=== PATIENT | female | born 1990 | race Caucasian/White ===

== ENCOUNTER 2016-11-19 22:20 | Emergency (ER) | payer OTHER ==
[~2016-11-19] VITALS: Ht 157.5 cm; Wt 88.5 kg
[2016-11-19 22:27] VITALS: Ht 157.5 cm; Wt 88.5 kg
--- NOTE | 2016-11-19 22:59 | ERD ---
ER Documentation Chief Complaint Date/Time DATE: 11/19/16 TIME: 22:57 Chief Complaint shortness of breath 30 minutes ago, anxiety, left arm pain HPI 26-year-old female presents here in emergency department complains of palpitations on and off shortness of breath for 3 days, has had the symptoms for the last 5 years, but worse the last 3 days. Patient is complaining of left arm pain, abdominal pain, 6/10 scale, accompanied with numbness and tingling at times. Patient lives heavy object at work. Patient did not take any medications elevated symptoms. Patient denies any dyspnea on exertion or dyspnea on lying down. Patient denies any dizziness. Patient denies any cough. Patient denies any wheezing. ROS All systems reviewed and are negative except as per history of present illness. Medications Home Meds Reported Medications [none] Unknown Strength No Conflict Check 11/19/16 Allergies Allergies: Coded Allergies: No Known Allergy (Unverified , 11/19/16) PMhx/Soc Medical and Surgical Hx: pt denies Medical Hx, pt denies Surgical Hx FmHx Family History: diabetes Physical Exam Vitals Vital Signs Date Time Temp Pulse Resp B/P Pulse Ox O2 Delivery O2 Flow Rate FiO2 11/19/16 22:27 98.8 80 20 146/84 100 Physical Exam GENERAL: The patient is well developed and appropriate for usual state of health, in no apparent distress. CHEST: Clear to auscultation bilaterally. There are no rales, wheezes or rhonchi. HEART: Regular rate and rhythm. No murmurs, clicks, rubs or gallops. No S3 or S4. ABDOMEN: Soft, nontender and nondistended. Good bowel sounds. No rebound or guarding. No gross peritonitis. No gross organomegaly or masses. No Cee sign or McBurney point tenderness. BACK: No midline or flank tenderness. EXTREMITIES: Equal pulses bilaterally. There is no peripheral clubbing, cyanosis or edema. No focal swelling or erythema. Full range of motion. Grossly neurovascularly intact. NEURO: Alert and oriented. Cranial nerves 2-12 intact. Motor strength in all 4 extremities with 5/5 strength. Sensation grossly intact. Normal speech and gait. SKIN: There is no apparent rash or petechia. The skin is warm and dry. HEMATOLOGIC AND LYMPHATIC: There is no evidence of excessive bruising or lymphedema. No gross cervical, axillary, or inguinal lymphadenopathy. Results 24 hrs Laboratory Tests Test 11/19/16 23:14 Bedside Urine pH (LAB) 6.5 Bedside Urine Protein (LAB) Negative Bedside Urine Glucose (UA) Negative Bedside Urine Ketones (LAB) Negative Bedside Urine Blood 2+ Bedside Urine Nitrite (LAB) Negative Bedside Urine Leukocyte Esterase (L Negative EKG was done, read by me and is normal sinus rhythm with sinus arrhythmia at a rate of 86, normal axis, there is no ST changes or changes in the EKG that indicates any cardiac emergencies at this time. Patient's EKG was also reviewed by Dr. Terrell. Impression: no acute findings on EKG PROCEDURE: XR Chest. CLINICAL INDICATION: Left arm pain. TECHNIQUE: Portable AP upright view of the chest was obtained. COMPARISON: None. FINDINGS: The cardiomediastinal silhouette is within normal limits. The lungs are clear. The costophrenic angles are sharp. There is no evidence of pneumothorax. The osseous structures are intact with no evidence for acute abnormality. RPTAT:HJJR IMPRESSION: No evidence for acute intrathoracic pathology. Physician Jermaine Date Time Electronically viewed and signed by Physician Jermaine on 11/19/2016 23:54 JR/ CC: LILIYA HENDRICKS TECHNICIAN'S HELPER Procedures/MDM Medical Decision Making: Patient's symptoms nonspecific at this time, possible anxiety related, left arm pain nonspecific, possible musculoskeletal pain. There is low suspicion for cardiopulmonary emergencies at this time. Patient has low risk factors. EKG is normal, there is no changes in the EKG that indicates cardiac emergencies. Chest X-ray does not show cardiopulmonary emergencies at this time. There is low suspicion for aortic aneurysm, myocardial infarction, pneumothorax, pleural effusion, pulmonary embolism, or any other cardiopulmonary emergencies at this time. Prescription was given for ibuprofen for mild to moderate pain, tramadol for severe pain, advised to see primary care doctor in 1-2 days, possible Holter monitoring with software implementation specialist. Patient was advised to return to emergency department for any worsening symptoms Departure Diagnosis: Primary Impression: Palpitations Additional Impression: Arm pain, left Condition: Stable Patient Instructions: Palpitations Additional Instructions: Prescription was given for ibuprofen for mild to moderate pain, tramadol for severe pain, advised to see primary care doctor in 1-2 days, possible Holter monitoring with software implementation specialist. Patient was advised to return to emergency department for any worsening symptoms LILIYA HENDRICKS NP Nov 19, 2016 22:59
[2016-11-19 23:14] LABS: URINE BLOOD (Dip) POC 2+ (NEGATIVE)
--- NOTE | 2016-11-19 23:54 | RADRPT ---
PROCEDURE: XR Chest. CLINICAL INDICATION: Left arm pain. TECHNIQUE: Portable AP upright view of the chest was obtained. COMPARISON: None. FINDINGS: The cardiomediastinal silhouette is within normal limits. The lungs are clear. The costophrenic an gles are sharp. There is no evidence of pneumothorax. The osseous structures are intact with no ev idence for acute abnormality. RPTAT:HJJR IMPRESSION: No evidence for acute intrathoracic pathology. Physician Jermaine Date Time Electronically viewed and signed by Physician Jermaine on 11/19/2016 23:54 /
[2016-11-20] MEDS ORDERED: TRAM50TA2 PO (00:04)
[2016-11-20] MEDS ORDERED: IBUP-1542 PO (00:04)
== END 2016-11-20 00:14 | disposition home or self-care (01) ==
LOC: FTE 22:20
DX: R00.2 Palpitations (principal); M79.602 Pain in left arm
CPT/HCPCS: 71010; 81003; 93005; Z7502

== ENCOUNTER 2016-11-24 18:16 | Emergency (ER) | payer OTHER ==
[~2016-11-24] VITALS: Ht 154.9 cm; Wt 88.5 kg
[~2016-11-24 18:16] MED LIST: IBUP-1542 PO; TRAM50TA2 PO
[2016-11-24 18:18] VITALS: Ht 154.9 cm; Wt 88.5 kg
[2016-11-24] MEDS ORDERED: ONDANSETRON 4 MG INJ IV STA (18:46)
[2016-11-24] MEDS ORDERED: SOD CHLORIDE 0.9% 1,000 ML IV STA (18:46)
[2016-11-24] MEDS ORDERED: morphine 2 MG INJ IV STA (18:46)
--- NOTE | 2016-11-24 18:59 | ERD ---
ER Documentation Chief Complaint Date/Time DATE: 11/24/16 TIME: 18:53 Chief Complaint 7/10 right side flank pain x today denies pain with urination HPI This is a 26-year-old female presenting to the emergency department for intermittent right lower quadrant abdominal pain that started today. Patient states this morning she woke up with right-sided lower quadrant abdominal pain that radiates upwards to right upper quadrant. Patient rates pain 6/10 and describes pain as intermittent intermittent cramping. Denies any relieving or aggravating factors. Patient denies back or flank pain. No chest pain, shortness of breath, difficulty breathing or wheezing. Patient is talking in complete sentences. Denies dysuria or hematuria. No fevers or chills. No nausea or vomiting. Patient states she had loose bowel movements today. Patient's last menstrual period was 1 week ago. She states she is no longer menstruating. ROS All systems reviewed and are negative except as per history of present illness. Medications Home Meds Active Scripts Tramadol HCl (Tramadol HCl) 50 Mg Tablet, 50 MG PO Q6 Y for SEVERE PAIN LEVEL 7- 10, #20 TAB Prov:LILIYA HENDRICKS RELATIONSHIP MANAGEMENT LEAD 11/20/16 Ibuprofen* (Motrin*) 600 Mg Tab, 600 MG PO Q6H Y for PAIN AND OR ELEVATED TEMP, #30 TAB Prov:LILIYA HENDRICKS RELATIONSHIP MANAGEMENT LEAD 11/20/16 Reported Medications [none] Unknown Strength No Conflict Check 11/19/16 Allergies Allergies: Coded Allergies: No Known Allergy (Unverified , 11/24/16) PMhx/Soc Medical and Surgical Hx: pt denies Medical Hx, pt denies Surgical Hx Hx Alcohol Use: No Hx Substance Use: No Hx Tobacco Use: No Smoking Status: Never smoker Physical Exam Vitals Vital Signs Date Time Temp Pulse Resp B/P Pulse Ox O2 Delivery O2 Flow Rate FiO2 11/24/16 18:18 98.5 75 18 135/83 99 Physical Exam Const: alert, non-toxic appearing Head: Atraumatic Eyes: Normal Conjunctiva ENT: Normal External Ears, Nose and Mouth. Neck: Full range of motion..~ No meningismus. Resp: Clear to auscultation bilaterally. No wheezing, rhonchi or crackles. No stridor or labored breathing. No intercostal retractions. Cardio: Regular rate and rhythm, no murmurs Abd: Soft, non distended. Normal bowel sounds, right lower quadrant tenderness to palpation. Negative Cee sign. Skin: No petechiae or rashes Back: No midline or flank tenderness. No CVA tenderness. Ext: No cyanosis, or edema Neur: Awake and alert Psych: Normal Mood and Affect Result Diagram: 11/24/16189911/24/161899 Results 24 hrs Laboratory Tests Test 11/24/16 19:00 11/24/16 19:01 White Blood Count 6.610^3/ul Red Blood Count 4.7210^6/ul Hemoglobin 14.0g/dl Hematocrit 43.1% Mean Corpuscular Volume 91.3fl Mean Corpuscular Hemoglobin 29.7pg Mean Corpuscular Hemoglobin Concent 32.5g/dl Red Cell Distribution Width 11.9% Platelet Count 01537^3/UL Mean Platelet Volume 9.6fl Neutrophils % 51.7% Lymphocytes % 35.9% Monocytes % 9.0% Eosinophils % 2.6% Basophils % 0.6% Nucleated Red Blood Cells % 0.0/100WBC Neutrophils # 3.410^3/ul Lymphocytes # 2.410^3/ul Monocytes # 0.610^3/ul Eosinophils # 0.210^3/ul Basophils # 0.010^3/ul Nucleated Red Blood Cells # 0.010^3/ul Sodium Level 142mmol/L Potassium Level 4.0mmol/L Chloride Level 102mmol/L Carbon Dioxide Level 28mmol/L Anion Gap 16 Blood Urea Nitrogen 10mg/dl Creatinine 0.81mg/dl Glucose Level 89mg/dl Calcium Level 9.6mg/dl Total Bilirubin 0.2mg/dl Direct Bilirubin 0.00mg/dl Indirect Bilirubin 0.2mg/dl Aspartate Amino Transf (AST/SGOT) 45IU/L Alanine Aminotransferase (ALT/SGPT) 69IU/L Alkaline Phosphatase 80IU/L Total Protein 8.7g/dl Albumin 4.9g/dl Globulin 3.80g/dl Albumin/Globulin Ratio 1.28 Lipase 155U/L Bedside Urine pH (LAB) 7.0 Bedside Urine Protein (LAB) Negative Bedside Urine Glucose (UA) Negative Bedside Urine Ketones (LAB) Negative Bedside Urine Blood Trace-intact Bedside Urine Nitrite (LAB) Negative Bedside Urine Leukocyte Esterase (L Negative Current Medications Medications (Trade) Dose Ordered Sig/Milad Route PRN Reason Start Time Stop Time Status Last Admin Dose Admin Sodium Chloride (NS) 1,000 ml @ 1,000 mls/hr Q1H STAT IV 11/24/16 18:46 11/24/16 19:45 DC 11/24/16 18:56 Morphine Sulfate (morphine) 2 mg ONCE STAT IV 11/24/16 18:46 11/24/16 18:50 DC 11/24/16 18:56 Ondansetron HCl (Zofran Inj) 4 mg ONCE STAT IV 11/24/16 18:46 11/24/16 18:50 DC 11/24/16 18:55 Procedures/MDM ED COURSE: The patient was stable throughout ED course. I kept the patient and/or family informed of laboratory and diagnostic imaging results throughout the ED course. Laboratory CBC no significant anemia or infection CMP no significant electrolyte imbalance Lipase 155 Urine dip trace blood otherwise unremarkable urine Imaging Ultrasound pelvis Patient: EDWINA HORTON : 1990 Age: 26 Sex: F MR #: [id number] DOS: 11/24/16 1846 Ordering MD: LINDSAY FREED NP Location: [facility] Room/Bed: PROCEDURE: US Pelvis. CLINICAL INDICATION: Right abdominal pain TECHNIQUE: Multiple sonographic images of the pelvis were obtained utilizing a transabdominal technique. The images were reviewed on a PACS workstation. COMPARISON: CT abdomen and pelvis without contrast of 11/24/2016 FINDINGS: The uterus measures 7.7 x 2.8 x 4.4 cm and is unremarkable. The thickness of the endometrium equals 7.2 mm. The right ovary measures 7.5 x 5.7 x 6.1 cm and contains a 6.5 x 5.1 x 5.3 cm simple appearing cyst. The left ovary measures 3.2 x 2.4 x 2.2 cm and is unremarkable. Color flow and spectral analysis demonstrates normal arterial flow in both ovaries. No free intrapelvic fluid is seen. IMPRESSION: Enlarged right ovary containing 6.5 cm right ovarian simple appearing cyst. On the CT there is an approximate 1 cm long segment of thin linear calcification in portion of the wall of the cyst. Follow-up pelvic ultrasound in approximately [address] abdomen and pelvis Patient: EDWINA HORTON : 1990 Age: 26 Sex: F MR #: [id number] DOS: 11/24/16 1846 Ordering MD: LINDSAY FREED NP Location: [facility] Room/Bed: PROCEDURE: CT Abdomen and Pelvis without contrast. CLINICAL INDICATION: Abdominal pain TECHNIQUE: CT scan of the abdomen and pelvis without contrast was performed on a multidetector high-resolution CT scanner. The patient was scanned without intravenous contrast. Coronal and sagittal reformatted images were obtained from the axial source images. Images were reviewed on a high-resolution PACS workstation. The total exam CTDI equals 19.25 mGy and the total exam DLP equals 1115.25 mGy-cm. One or more the following dose reduction techniques were utilized: Automated exposure control, adjustment of the mA/ or kV according to patient's size, or use of iterative reconstruction technique. COMPARISON: Pelvic ultrasound of 11/24/2016 FINDINGS: CT abdomen: Minimal dependent atelectasis in posterior lower lungs. The heart size is normal, without pericardial thickening or effusion. Mild hepatic steatosis.. The spleen is normal in size and homogeneous in density. The stomach is grossly unremarkable. The pancreas as visualized is normal. The gallbladder and biliary tree are unremarkable and there is no evidence for biliary dilatation. The adrenal glands are symmetric and normal. The kidneys are symmetrically unremarkable as well. No renal calculus or obstructive uropathy or mass lesion is seen. The aorta is of normal caliber. There is no retroperitoneal lymphadenopathy. The juanita hepatis region is clear. The bowel and mesentery, as visualized, are equally unremarkable. CT pelvis: The small bowel loops situated within the pelvis are unremarkable. There is a 6.7 x 5.9 x 5.4 cm right ovarian cyst The pelvic sidewalls and inguinal regions are clear. The sigmoid colon and rectum are unremarkable. No lymphadenopathy, or free fluid is seen. No acute inflammation is seen. There is an unremarkable appendix. The surrounding osseous structures are unremarkable. 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 No osteolytic or osteoblastic lesion is detected. IMPRESSION: Mild hepatic steatosis. 6.7 cm right ovarian cyst with approximate 1 cm thin linear calcification in portion of its wall. Follow-up pelvic ultrasound in approximately 6 weeks is recommended. MDM: 26-year-old female presents emergency department for right-sided lower quadrant abdominal pain that started today. Patient denies fever, nausea or vomiting. Patient rating pain 6-7/10 to right lower quadrant abdomen. Denies dysuria or hematuria. IV access obtained and patient was given 1L IV fluid bolus of normal saline. Patient also given morphine and Zofran through IV. Patient states pain has fully resolved. Pelvic ultrasound reviewed by radiologist as enlarged right ovary containing 6.5 cm right ovarian simple appearing cyst. Approximate 1 cm long segment of thin linear calcification in portion of the wall of the cyst. CT abdomen pelvis reviewed by radiologist as mild hepatic steatosis. 6.7 cm right ovarian cyst with approximate 1 cm thin linear calcification in portion of its wall. Patient remains hemodynamically stable and states she feels that pain has completely resolved. On subsequent abdominal exams, patient no longer tender to right lower quadrant. Low suspicion for ovarian torsion or surgical emergencies at this time. Differential diagnosis includes but not limited to ovarian cyst, ovarian mass, tubo-ovarian abscess, ectopic , appendicitis, cholecystitis cholelithiasis, nephrolithiasis or obstructive uropathy. Patient is appropriate for outpatient management. Instructed patient to follow- up with primary care provider or [facility] in the next 24-48 hours for reassessment and additional management. Return to ED for any high fever, chest pain, difficulty breathing, shortness breath, wheezing, vomiting, diarrhea, abdominal pain or any new or worsening symptoms. Patient verbalizes understanding. All questions answered at discharge. Departure Diagnosis: Primary Impression: Abdominal pain Abdominal location: right lower quadrant Qualified Code: R10.31 - Right lower quadrant abdominal pain Condition: Stable LINDSAY FREED NP Nov 24, 2016 18:59
[2016-11-24 19:01] LABS: URINE BLOOD (Dip) POC Trace-intact (NEGATIVE)
[2016-11-24 19:21] LABS: ADD SCAN DIFF NO
[2016-11-24 19:22] LABS: BASOPHILS % 0.6 % (0.0-2.0); EOSINOPHILS # 0.2 10^3/ul (0.0-0.5); EOSINOPHILS % 2.6 % (0.0-7.0); HEMATOCRIT 43.1 % (37.0-47.0); LYMPHOCYTES # 2.4 10^3/ul (0.8-2.9); LYMPHOCYTES % 35.9 % (15.0-51.0); MEAN CORPUSCULAR HEMOGLOBIN 29.7 pg (29.0-33.0); MEAN CORPUSCULAR HGB CONC 32.5 g/dl (32.0-37.0); MEAN CORPUSCULAR VOLUME 91.3 fl (82.0-101.0); MEAN PLATELET VOLUME 9.6 fl (7.4-10.4); MONOCYTE # 0.6 10^3/ul (0.3-0.9); NEUTROPHIL # 3.4 10^3/ul (1.6-7.5); NEUTROPHILS % 51.7 % (39.0-77.0); PLATELET COUNT 408 10^3/UL (140-415); RED BLOOD COUNT 4.72 10^6/ul (4.20-5.40); RED CELL DISTRIBUTION WIDTH 11.9 % (11.5-14.5); WHITE BLOOD COUNT 6.6 10^3/ul (4.8-10.8)
[2016-11-24 19:34] LABS: ALBUMIN 4.9 g/dl (3.3-4.9)
[2016-11-24 19:37] LABS: ALBUMIN/GLOBULIN RATIO 1.28; BILIRUBIN,INDIRECT 0.2 mg/dl (0-1.1); BILIRUBIN,TOTAL 0.2 mg/dl (0.2-1.3); CREATININE 0.81 mg/dl (0.44-1.00); TOTAL PROTEIN 8.7 g/dl (6.1-8.1)
[2016-11-24 19:38] LABS: CALCIUM 9.6 mg/dl (8.4-10.2)
--- NOTE | 2016-11-24 21:02 | RADRPT ---
PROCEDURE: CT Abdomen and Pelvis without contrast. CLINICAL INDICATION: Abdominal pain TECHNIQUE: CT scan of the abdomen and pelvis without contrast was performed on a multidetector hig h-resolution CT scanner. The patient was scanned without intravenous contrast. Coronal and sagittal reformatted images were obtained from the axial source images. Images were reviewed on a high-resol [employer] PACS workstation. The total exam CTDI equals 19.25 mGy and the total exam DLP equals 1115.25 m Gy-cm. One or more the following dose reduction techniques were utilized: Automated exposure control, adjus tment of the mA/ or kV according to patient's size, or use of iterative reconstruction technique. COMPARISON: Pelvic ultrasound of 11/24/2016 FINDINGS: CT abdomen: Minimal dependent atelectasis in posterior lower lungs. The heart size is normal, without pericardi al thickening or effusion. Mild hepatic steatosis.. The spleen is normal in size and homogeneous in density. The stomach is grossly unremarkable. The pancreas as visualized is normal. The gallblad yani and biliary tree are unremarkable and there is no evidence for biliary dilatation. The adrenal glands are symmetric and normal. The kidneys are symmetrically unremarkable as well. No renal calc ulus or obstructive uropathy or mass lesion is seen. The aorta is of normal caliber. There is no retroperitoneal lymphadenopathy. The juanita hepatis r egion is clear. The bowel and mesentery, as visualized, are equally unremarkable. CT pelvis: The small bowel loops situated within the pelvis are unremarkable. There is a 6.7 x 5.9 x 5.4 cm rig ht ovarian cyst The pelvic sidewalls and inguinal regions are clear. The sigmoid colon and rectum a re unremarkable. No lymphadenopathy, or free fluid is seen. No acute inflammation is seen. There i s an unremarkable appendix. The surrounding osseous structures are unremarkable. There is appearance of a transitional L5 verte bra with partial sacralization bilaterally. No osteolytic or osteoblastic lesion is detected. IMPRESSION: Mild hepatic steatosis. 6.7 cm right ovarian cyst with approximate 1 cm thin linear calcification in portion of its wall. Follow-up pelvic ultrasound in approximately 6 weeks is recommended. RPTAT: HJES .Bahman Ramirez MD, MD Date Time Electronically viewed and signed by .Bahman Ramirez MD, MD on 11/24/2016 21:02 .S/
--- NOTE | 2016-11-24 22:31 | RADRPT ---
PROCEDURE: US Pelvis. CLINICAL INDICATION: Right abdominal pain TECHNIQUE: Multiple sonographic images of the pelvis were obtained utilizing a transabdominal tech nique. The images were reviewed on a PACS workstation. COMPARISON: CT abdomen and pelvis without contrast of 11/24/2016 FINDINGS: The uterus measures 7.7 x 2.8 x 4.4 cm and is unremarkable. The thickness of the endometrium equals 7.2 mm. The right ovary measures 7.5 x 5.7 x 6.1 cm and contains a 6.5 x 5.1 x 5.3 cm simple appear ing cyst. The left ovary measures 3.2 x 2.4 x 2.2 cm and is unremarkable. Color flow and spectral a nalysis demonstrates normal arterial flow in both ovaries. No free intrapelvic fluid is seen. IMPRESSION: Enlarged right ovary containing 6.5 cm right ovarian simple appearing cyst. On the CT there is an ap proximate 1 cm long segment of thin linear calcification in portion of the wall of the cyst. Follow -up pelvic ultrasound in approximately 6 weeks is recommended. RPTAT: HJES .Bahman Ramirez MD, MD Date Time Electronically viewed and signed by .Bahman Ramirez MD, on 11/24/2016 22:31 .S/
[2016-11-24 23:38] VITALS: BP 125/77; PULSE 68; RESP 20; TEMP 98.2
== END 2016-11-24 23:00 | disposition home or self-care (01) ==
LOC: FTE 18:16
DX: R10.31 Right lower quadrant pain (principal)
CPT/HCPCS: 74176; 76856; 80053; 81003; 83690; 85025; J2270; J2405; J7030; 36415; 96374; 96375

== ENCOUNTER 2017-06-15 06:46 | Emergency (ER) | payer OTHER ==
[~2017-06-15] VITALS: Wt 87.5 kg
[2017-06-15] MEDS: ACETAMINOPHEN 325 MG TAB PO ONE ×2 (07:28→07:30)
[2017-06-15] MEDS ORDERED: CEFTRIAXONE 1 GM/50 ML (PMX) 50 ML IVPB STA (08:14)
[2017-06-15] MEDS ORDERED: SOD CHLORIDE 0.9% 1,000 ML IV STA (08:14)
--- NOTE | 2017-06-15 09:00 | RADRPT ---
PROCEDURE: US Pelvis. CLINICAL INDICATION: Right pelvic pain. TECHNIQUE: Multiple sonographic images of the pelvis were obtained utilizing an endovaginal techn ique. The images were reviewed on a PACS workstation. COMPARISON: US PELVIS 11/24/2016 FINDINGS: The uterus is visualized and measures 7.8 x 3.0 x 3.3 cm. The endometrial echo complex is normal and measures 8 mm. There is no evidence for free fluid. The right ovary measures 6.20 x 5.6 x 7.8 cm. T here is a right ovarian cyst which measures 5.8 x 5.3 x 6.9 cm. Previously this cyst measured 6.5 x 5.1 x 5.3 cm The left ovary has a normal echotexture and measures 3.7 x 2.1 x 2.2 cm. Bilateral ova zaida arterial and venous flow was confirmed. No adnexal masses are noted. IMPRESSION: 1. Right ovarian cyst slightly decreased in size when compared to the previous examination dated . 2. Unremarkable uterus and left ovary. RPTAT: HRSR Physician Bret Date Time Electronically viewed and signed by Physician Bret on 06/15/2017 08:59 RR/
[2017-06-15] MEDS ORDERED: KETOROLAC 30 MG INJ IV STA (09:42)
[2017-06-15] MEDS ORDERED: CEPH500C PO (09:45)
[2017-06-15] MEDS ORDERED: IBUP-1542 PO (09:46)
--- NOTE | 2017-06-15 09:49 | ERD ---
ER Documentation Chief Complaint Chief Complaint lower back pain, farfan, fever HPI This 19-year-old female presents with a 2 day history of bitemporal headache, body aches, low-grade fever triage. She has some pain in her right lower back. There is no history of flank pain or anterior abdominal pain. Patient is a history of ovarian cyst proximal was 6 months ago for which she never followed up. She denies any dysuria. ROS All systems reviewed and are negative except as per history of present illness. Medications Home Meds Active Scripts Ibuprofen* (Motrin*) 600 Mg Tab, 600 MG PO Q6, #15 TAB Prov:JOHNNY LUND MD 06/15/17 Cephalexin* (Cephalexin*) 500 Mg Capsule, 500 MG PO Q6 for 7 Days, #28 CAP Prov:JOHNNY LUND MD 06/15/17 Tramadol HCl (Tramadol HCl) 50 Mg Tablet, 50 MG PO Q6 Y for SEVERE PAIN LEVEL 7- 10, #20 TAB Prov:LILIYA HENDRICKS NP 11/20/16 Ibuprofen* (Motrin*) 600 Mg Tab, 600 MG PO Q6H Y for PAIN AND OR ELEVATED TEMP, #30 TAB Prov:LILIYA HENDRICKS NP 11/20/16 Reported Medications [none] Unknown Strength No Conflict Check 11/19/16 Allergies Allergies: Coded Allergies: No Known Allergy (Unverified , 06/15/17) PMhx/Soc Medical and Surgical Hx: pt denies Medical Hx, pt denies Surgical Hx History of Surgery: No Anesthesia Reaction: No Hx Neurological Disorder: No Hx Respiratory Disorders: No Hx Cardiac Disorders: No Hx Psychiatric Problems: No Hx Miscellaneous Medical Probl: No Hx Alcohol Use: Yes (socially) Hx Substance Use: No Hx Tobacco Use: No Smoking Status: Never smoker Physical Exam Vitals Vital Signs Date Time Temp Pulse Resp B/P Pulse Ox O2 Delivery O2 Flow Rate FiO2 06/15/17 06:47 100.6 111 20 132/89 99 Physical Exam Const: [], [id number]. Head: Atraumatic Eyes: Normal Conjunctiva ENT: Normal External Ears, Nose and Mouth. Neck: Full range of motion..~ No meningismus. Resp: Clear to auscultation bilaterally Cardio: Regular rate and rhythm, no murmurs Abd: Soft, non tender, non distended. Normal bowel sounds no appreciable tenderness at McBurney's point no Cee sign. Skin: No petechiae or rashes Back: No midline or flank tenderness or tenderness in the right L4-L5 area. Ext: No cyanosis, or edema Neur: Awake and alert Psych: Normal Mood and Affect Result Diagram: 06/15/17 0837 06/15/17 0837 Results 24 hrs Laboratory Tests Test 06/15/17 08:18 06/15/17 08:37 Urine Color MICHELLE Urine Clarity SLIGHTLY CLOUDY Urine pH 5.0 Urine Specific [place] 1.024 Urine Ketones NEGATIVEmg/dL Urine Nitrite NEGATIVEmg/dL Urine Bilirubin NEGATIVEmg/dL Urine Urobilinogen 1+mg/dL Urine Leukocyte Esterase 2+Valerie/ul Urine Microscopic RBC 12/HPF Urine Microscopic WBC 42/HPF Urine Squamous Epithelial Cells MODERATE/HPF Urine Bacteria FEW/HPF Urine Mucus FEW/HPF Urine Hemoglobin 1+mg/dL Urine Glucose NEGATIVEmg/dL Urine Total Protein 1+mg/dl White Blood Count 11.010^3/ul Red Blood Count 4.7910^6/ul Hemoglobin 14.6g/dl Hematocrit 44.0% Mean Corpuscular Volume 91.9fl Mean Corpuscular Hemoglobin 30.5pg Mean Corpuscular Hemoglobin Concent 33.2g/dl Red Cell Distribution Width 11.9% Platelet Count 80589^3/UL Mean Platelet Volume 9.2fl Neutrophils % 72.5% Lymphocytes % 15.6% Monocytes % 10.8% Eosinophils % 0.2% Basophils % 0.5% Nucleated Red Blood Cells % 0.0/100WBC Neutrophils # 8.010^3/ul Lymphocytes # 1.710^3/ul Monocytes # 1.210^3/ul Eosinophils # 0.010^3/ul Basophils # 0.110^3/ul Nucleated Red Blood Cells # 0.010^3/ul Bedside Urine pH (LAB) 6.0 Bedside Urine Protein (LAB) 1+ Bedside Urine Glucose (UA) Negative Bedside Urine Ketones (LAB) Negative Bedside Urine Blood 2+ Bedside Urine Nitrite (LAB) Negative Bedside Urine Leukocyte Esterase (L 1+ Sodium Level 141mmol/L Potassium Level 3.8mmol/L Chloride Level 101mmol/L Carbon Dioxide Level 27mmol/L Anion Gap 17 Blood Urea Nitrogen 8mg/dl Creatinine 0.83mg/dl Glucose Level 104mg/dl Calcium Level 9.1mg/dl Total Bilirubin 0.7mg/dl Direct Bilirubin 0.00mg/dl Indirect Bilirubin 0.7mg/dl Aspartate Amino Transf (AST/SGOT) 27IU/L Alanine Aminotransferase (ALT/SGPT) 52IU/L Alkaline Phosphatase 83IU/L Total Protein 8.6g/dl Albumin 4.7g/dl Globulin 3.90g/dl Albumin/Globulin Ratio 1.20 Lipase 61U/L Current Medications Medications (Trade) Dose Ordered Sig/Milad Route PRN Reason Start Time Stop Time Status Last Admin Dose Admin Acetaminophen 650 mg 650 mg ONCE ONCE PO 06/15/17 07:30 06/15/17 07:31 DC Sodium Chloride 1,000 ml @ 1,000 mls/hr Q1H STAT IV 06/15/17 08:14 06/15/17 09:13 DC 06/15/17 08:44 Ceftriaxone Sodium (Rocephin) 50 ml @ 100 mls/hr ONCE STAT IVPB 06/15/17 08:14 06/15/17 08:43 DC 06/15/17 08:44 Ketorolac Tromethamine (Toradol) 30 mg ONCE STAT IV 06/15/17 09:42 06/15/17 09:43 UNV Procedures/MDM Some pelvis shows persistent ovarian cyst which is smaller from previous visit. Urine shows leukocytes and white blood cells consistent with infection. HCG is negative. CBC shows white blood cell of 11 and CMP is normal. Patient is given Toradol 30 mg IV, 1 L normal saline IV, and Rocephin 1 g IV for his findings of UTI. Patient presents with multiple complaints of low back pain low -grade fever. She will be treated given the findings UTI and urinalysis although additional symptoms suggest possibly musculoskeletal back pain or viral syndrome. She should return for fevers, intra-abdominal pain, shortness breath, new worsening symptoms otherwise will prescribe Keflex, ibuprofen recommend primary care follow-up and return precautions. The patient was stable with no new complaints during the ER course. Clinically, there is no current evidence to suggest meningitis, sepsis, acute abdomen, pneumonia, acute coronary syndrome, pulmonary embolism, or any other emergent condition appearing to require further evaluation or hospitalization. The patient should certainly return for any new or worsening symptoms per the aftercare instructions. They should otherwise follow-up with her primary care doctor for reevaluation this week. Departure Diagnosis: Primary Impression: UTI (urinary tract infection) Urinary tract infection type: acute cystitis Hematuria presence: without hematuria Qualified Code: N30.00 - Acute cystitis without hematuria Additional Impression: Back pain Back pain location: low back pain Chronicity: acute Back pain laterality: right Sciatica presence: without sciatica Qualified Code: M54.5 - Acute right-sided low back pain without sciatica Condition: Stable Patient Instructions: Understanding Urinary Tract Infections (UTIs), Pyelonephritis, Back Pain W/ Sciatica Additional Instructions: Examinations show likely urine or kidney infection. May be a viral illness as well. Drink plenty of fluids at home. For vomiting, persistent fevers over 48 hours, new or worsening symptoms. Ultrasound shows ovarian cyst is persistent but smaller in size. JOHNNY LUND MD Jun 15, 2017 09:49
[2017-06-15 10:01] VITALS: BP 116/78; PULSE 100; RESP 16; TEMP 99.4
[2017-06-16] MEDS ORDERED: CEPH250S33 PO (10:35)
[2017-06-16] MEDS ORDERED: IBUP100O10 PO (10:35)
== END 2017-06-15 10:02 | disposition home or self-care (01) ==
LOC: FTE 06:46
DX: N30.00 Acute cystitis without hematuria (principal); R10.2 Pelvic and perineal pain
CPT/HCPCS: 36415; 76830; 76856; 80053; 81001; 83690; 85025; 96374; 96375; J0696; J1885; J7030; Z7502; Z7610; 81003

== ENCOUNTER 2017-06-16 09:08 | Emergency (ER) | payer BC, OTHER ==
[~2017-06-16] VITALS: Ht 154.9 cm; Wt 87.7 kg
[~2017-06-16 09:08] MED LIST changes: +CEPH500C PO
[2017-06-16 09:10] VITALS: Ht 154.9 cm; Wt 87.7 kg
--- NOTE | 2017-06-16 09:59 | ERD ---
ER Documentation Chief Complaint Chief Complaint fever x 2 days , was seen here for uti yesterday HPI 27-year-old female, returns to the emergency department after 24 hours of being seen here for a urinary tract infection. The patient is here requesting a change on her her prescription because she has not been able to swallow the pills. The patient denies fever, abdominal pain, no worsening of symptoms ROS All systems reviewed and are negative except as per history of present illness. Medications Home Meds Active Scripts Cephalexin* (Cephalexin* Susp) 250 Mg/5 Ml Susp.recon, 10 ML PO Q6 for 7 Days, BOTTLE Prov:LUISA WALTERS MD 06/16/17 Ibuprofen (Ibuprofen) 100 Mg/5 Ml Oral.susp, 20 ML PO Q6H Y for PAIN AND OR ELEVATED TEMP, #4 OZ Prov:LUISA WALTERS MD 06/16/17 Ibuprofen* (Motrin*) 600 Mg Tab, 600 MG PO Q6, #15 TAB Prov:JOHNNY LUND MD 06/15/17 Cephalexin* (Cephalexin*) 500 Mg Capsule, 500 MG PO Q6 for 7 Days, #28 CAP Prov:JOHNNY LUND MD 06/15/17 Tramadol HCl (Tramadol HCl) 50 Mg Tablet, 50 MG PO Q6 Y for SEVERE PAIN LEVEL 7- 10, #20 TAB Prov:LILIYA HENDRICKS NP 11/20/16 Ibuprofen* (Motrin*) 600 Mg Tab, 600 MG PO Q6H Y for PAIN AND OR ELEVATED TEMP, #30 TAB Prov:LILIYA HENDRICKS NP 11/20/16 Reported Medications [none] Unknown Strength No Conflict Check 11/19/16 Allergies Allergies: Coded Allergies: No Known Allergy (Unverified , 06/15/17) PMhx/Soc History of Surgery: No Anesthesia Reaction: No Hx Neurological Disorder: No Hx Respiratory Disorders: No Hx Cardiac Disorders: No Hx Psychiatric Problems: No Hx Miscellaneous Medical Probl: No Hx Alcohol Use: Yes (socially) Hx Substance Use: No Hx Tobacco Use: No Physical Exam Vitals Vital Signs Date Time Temp Pulse Resp B/P Pulse Ox O2 Delivery O2 Flow Rate FiO2 06/16/17 09:10 98.8 90 18 129/81 99 Physical Exam Patient is in no acute distress, vital signs stable. Alert and fully oriented. EYES: PERRLA, EOMI, Sclera and conjunctiva appear normal. EARS: Canals clear, tympanic membranes WNL THROAT: Normal oropharynx. NECK: Supple, No lymphadenopathy. Full ROM without pain or tenderness. HEART: RRR, no rubs, murmurs, clicks or gallops. LUNGS: Clear to auscultation. ABDOMEN: Soft, non-tender without masses or hepatosplenomegaly. EXTREMITIES: No edema bilaterally. MUSC: Full ROM, no deformity, normal back exam Procedures/MDM 27y/o female patient diagnosed with UTI yesterday, presents to the ED requesting a change of her prescription to liquid. Vital signs stable, Physical exam unremarkable. Differential diagnosis include but not limited to: UTI, dehydration, virus/bacterial infection. Pertinent Data: Labs from 06/15/17 reviewed. Physical examination and clinical presentation consistent most likely with UTI, with poor tolerance to antibiotic tablets. During the ED course the patient remained stable, no new complaints Results and medical impression discussed with patient who agrees with management. The patient will be discharged home with a Rx for ibuprofen and cephalexin suspension If symptoms persist, worsen or new symptoms develop, then patient is instructed to follow-up with the primary care provider. If the patient is unable to see the primary care provider, then return to the ED immediately. Departure Diagnosis: Primary Impression: UTI (urinary tract infection) Condition: Stable Patient Instructions: Be Involved in Your Healthcare: Taking Medications Additional Instructions: Thank you very much for allowing us to participate in your care. Your health and safety is our top priority at [facility] [place]. Have prescriptions filled and follow precisely the directions on the label. Follow-up with primary care provider during the next 4 days and bring all the information and medications prescribed. If illness has not improved in 2 days, then make an appointment with primary care provider. If the provider is unavailable, return to the Emergency Department immediately. LUISA WALTERS MD Jun 16, 2017 09:59
[2017-06-16] MEDS ORDERED: IBUP100O10 PO (10:35)
[2017-06-16] MEDS ORDERED: CEPH250S33 PO (10:35)
== END 2017-06-16 11:05 | disposition home or self-care (01) ==
LOC: FTE 09:08
DX: N39.0 Urinary tract infection, site not specified (principal)
CPT/HCPCS: 99283

== ENCOUNTER 2017-10-04 08:49 | Emergency (ER) | END 2017-10-04 15:26 | disposition home or self-care (01) ==

== ENCOUNTER 2017-10-07 10:33 | Emergency (ER) | END 2017-10-07 13:14 | disposition home or self-care (01) ==

== ENCOUNTER 2018-07-08 21:38 | Emergency (ER) | END 2018-07-09 05:45 | disposition home or self-care (01) ==